=== PATIENT | male | born 1990 | race Caucasian/White ===

== ENCOUNTER → 2018-05-20 17:00 | Outpatient (CLI) | payer OTHER, SELFPAY ==
--- NOTE | 2018-05-20 17:08 | XR_ITS ---
XR knee LT 3V HISTORY: ITS.REASON: LEFT ANTERIOR KNEE PAIN ORDERING PHYSICIAN: Amberly Mata PATIENT AGE: 27 years COMPARISON: None FINDINGS: No fracture or dislocation. No lytic change. Normal mineralization. No significant arthritic changes evident. There is a well-circumscribed area of sclerosis involving the distal shaft of the femur medially etiology indeterminate. No bony destructive process evident. IMPRESSION: 1. No acute finding. 2. 3 cm x 1 cm area of sclerosis of the distal femoral shaft medially. Consider follow-up to confirm stability
== END ==
PROVIDERS: PCP Internal Medicine Adolescent Medicine; Visit Provider Nurse Practitioner Family
DX: M25.562 Pain in left knee (principal)
CPT/HCPCS: 73562

== ENCOUNTER → 2018-06-12 12:58 | Outpatient (CLI) | payer OTHER, SELFPAY ==
--- NOTE | 2018-06-12 13:04 | MR_ITS ---
MR knee LT wo con Ordering Physician: Spencer Garza MD Patient Age: 27 years: Male HISTORY: ITS.REASON: LEFT ANTERIOR KNEE PAIN Left knee pain 6 weeks pain base of patella and posterior knee. TECHNIQUE: Multiplanar multisequence imaging performed on 1.5 to MR. COMPARISON :Plain films left knee 04/23/2018 FINDINGS Patellofemoral joint. Slight lateral shift of patella at the patellofemoral joint. Subtle lateral tilt of patella. However the cartilage at the posterior patella is fairly well-maintained with no discrete osteochondral defect. There could be some subtle increased signal reflect some minor chondral edema but unimpressive. Joint effusion, [id number] Ley's cyst : Along medial head of gastrocnemius. Over 5 cm in length & up to maximum 2.5 cm AP. . Medial compartment. Joint spaces well-maintained cartilage well-maintained. Meniscus appears intact Lateral compartment. Cartilage well-maintained. Joint space maintained. Lateral meniscus appears overall intact with no definitive tear. However on sagittal image 17, 16 note very subtle horizontal line passing thru anterior horn, & anterior meniscal root towards inferior surface of the meniscus. This may reflect transitional character at the anterior meniscal root;- but if pain in this anterior knee and towards this region, it would be difficult to totally exclude extremely subtle early anterior meniscal tear. May require follow-up if pain persist There is some mild superficial & subcutaneous edema overlying patella and patellar tendon. Nonspecific. Patellar tendon itself intact. The quadriceps tendon with normal to upper normal signal. No osseous fracture or contusion. No osteochondral defect . The ACL overall intact with some upper normal signal inferiorly. PCL intact. The lateral & medial collateral ligaments intact. Quadriceps and patellar tendon overall intact. Mild subcutaneous edema overlying the medial retinaculum more so than lateral retinaculum and patella. . IMPRESSION: ...... 1. Slight lateral position,& scant lateral tilt of patella at patellofemoral joint. . No discrete osteochondral defects but there may be mild increased signal cartilage throughout lateral facet of patella which could reflect some very minor chondral edema. Subtle. Unimpressive but noted. 2.. Joint effusion with Ley's cyst 3. No definitive meniscal tear. .. However would note a very very subtle linear horizontal line at Anterior Meniscal Root anterior horn junction. Subtle minor observation of questionable significance at this point.. May reflect transitional character at anterior meniscal root but if pain persists in this region, may warrant further investigation to evaluate for very subtle early horizontal tear extending to the inferior surface, anterior horn lateral meniscus, as it transitions to the anterior meniscal root.
== END ==
PROVIDERS: PCP Internal Medicine Adolescent Medicine; Visit Provider Internal Medicine Adolescent Medicine
DX: M25.562 Pain in left knee (principal)
CPT/HCPCS: 73721

== ENCOUNTER → 2019-11-24 10:12 | Outpatient (CLI) | payer OTHER, SELFPAY ==
[2019-11-24 10:36] LABS: Basophils % 0.5 % (0.1-2.0); Eosinophils # 0.1 K/mm3 (0.0-0.4); Hematocrit 46.1 % (42.0-52.0); Hemoglobin 15.2 g/dL (14.1-18.0); Lymphocytes # 2.6 K/mm3 (0.7-4.5); Lymphocytes % 39.5 % (10-50); Mean Corpuscular HGB Conc 33.1 g/dL (31.8-35.4); Mean Corpuscular Hemoglobin 27.1 pg (27.0-31.2); Mean Corpuscular Volume 82.1 fl (80-94); Mean Platelet Volume 7.6 fl (7.4-10.4); Monocytes # 0.3 K/mm3 (0.1-1.0); Monocytes % 4.8 % (1.7-9.3); Neutrophils # 3.5 K/mm3 (1.8-7.8); Neutrophils % 53.1 % (37.0-80.0); Platelet Count 261 K/mm3 (142-424); Red Blood Count 5.61 M/mm3 (4.60-6.20); Red Cell Distribution Width 13.2 % (11.5-17.5); White Blood Count 6.5 K/mm3 (4.8-10.8)
[2019-11-24 11:31] LABS: Alanine Aminotransferase 49 U/L (12-78); Albumin/Globulin Ratio 1.3 (1.1-1.8); Alkaline Phosphatase 69 U/L (46-116); Anion Gap 13.8 mEq/L (5-15); Aspartate Amino Transferase 25 U/L (15-37); Bilirubin,Total 0.4 mg/dL (0.2-1.0); Blood Urea Nitrogen 16 mg/dL (7-18); Calcium 8.9 mg/dL (8.5-10.1); Carbon Dioxide 27 mmol/L (21.0-32.0); Chloride 106 mmol/L (98-107); Chol/HDL Ratio 4.7 (1-3.5); Cholesterol 189 mg/dL (140-200); Creatinine,Serum 1.01 mg/dL (0.70-1.30); Estimated Glomerular Filt Rate 87 ml/min (>60); GFR (African American) 105 ML/MIN (>60); Globulin 3.1 gm/dl (1.3-3.2); Glucose 86 mg/dL (74-106); HDL Cholesterol 40 mg/dL (27-67); LDL Cholesterol 131 mg/dL (0-130); Potassium 4.8 mmoL/L (3.5-5.1); Sodium 142 mmol/L (136-145); Thyroid Stimulating Hormone 1.24 uIU/ml (0.358-3.740); Total Protein,Serum 7.1 gm/dL (6.4-8.2); Triglycerides 92 mg/dL (30-200); VLDL Cholesterol 18 mg/dL (0-40)
== END ==
PROVIDERS: PCP Internal Medicine Adolescent Medicine; Visit Provider Internal Medicine Adolescent Medicine
DX: Z00.00 Encounter for general adult medical examination without abnormal findings (principal); R53.83 Other fatigue; R53.81 Other malaise
CPT/HCPCS: 36415; 80053; 80061; 84443; 85025

== ENCOUNTER → 2019-12-19 14:44 | Outpatient (CLI) | payer OTHER, SELFPAY | PROVIDERS: PCP Internal Medicine Adolescent Medicine; Visit Provider Internal Medicine Adolescent Medicine | DX: G47.33 Obstructive sleep apnea (adult) (pediatric) (principal); R40.0 Somnolence; R06.83 Snoring; E66.9 Obesity, unspecified | CPT/HCPCS: 95806 ==